=== PATIENT | male | born 1955 | race Caucasian/White ===

== ENCOUNTER 2019-11-11 05:09 | Emergency (ER) | payer OTHER, MEDICAID, SELFPAY ==
[2019-11-11 04:55] VITALS: BP 172/80; PULSE 75; RESP 24; TEMP 36.7; O2SAT 98; BMI 44.6
--- NOTE | 2019-11-11 05:45 | ED_ITS ---
HPI - General Adult General Chief complaint: Dizziness Stated complaint: Light headed Time Seen by Provider: 11/11/19 05:09 Source: EMS Mode of arrival: EMS Limitations: no limitations History of Present Illness HPI narrative: Patient is a 64-year-old male brought in by EMS for evaluation of symptoms that the patient stated occurred at approximately 0200 hours in the morning. He states that he was up late last evening watching movies. He states that just prior to going to bed he had a gradual onset of feeling like he was ?dizzy? plan further evaluation this did not sound like a vertigo issue but more of an unsteadiness issue. He had no other associated symptoms. He did go to sleep without any problems. Woke up several hours later to use the restroom when again he states he was feeling very unsteady on his feet. He went to his kitchen and took his blood pressure which he states was ?severely elevated ?he does not remember the exact numbers. EMS report that he told them the systolic blood pressures greater than 200. He subsequently took his blood pressure several more times after that. He states that he continued to feel very unsteady. He called EMS. When EMS arrived and placed on the monitor they did show a atrial flutter with a rate less than 100. As the patient was transitioned to the gurney and into the back of the ambulance EMS reports that he converted to sinus rhythm. Upon arrival patient states that he is feeling somewhat better. Related Data Allergies Allergy/AdvReac Type Severity Reaction Status Date / Time No Known Drug Allergies Allergy Verified 11/11/19 05:25 Review of Systems Constitutional Constitutional: Denies fatigue, Denies fever(s) and Denies headache(s) Eyes Eyes: Denies change in vision ENT Ears, Nose, Mouth, and Throat: Denies vertigo, Reports dizziness, Denies headache(s) and Reports disequilibrium Cardiovascular Cardiovascular: Denies chest pain, Denies rapid heart rate and Denies dyspnea Respiratory Respiratory: Denies dyspnea Gastrointestinal Gastrointestinal: Denies abdominal pain, Denies nausea and Denies vomiting Genitourinary Genitourinary: Denies dysuria Genitourinary: Denies dysuria Musculoskeletal Musculoskeletal: Denies arthralgias and Denies myalgias Integumentary/Breasts Skin/Breast: Denies lesions and Denies rash Neurologic Neurologic: Denies confusion, Denies vertigo, Reports dizziness, Denies headache(s), Reports tremor(s) and Reports disequilibrium Psychiatric Psychiatric: Denies confusion Endocrine Endocrine: Denies fatigue Hematologic/Lymphatic Hematologic/Lymphatic: Denies easy bleeding and Denies easy bruising Allergic/Immunologic Allergic/Immunologic: Denies urticaria Patient History Medical History Congestive heart failure (Acute) COPD (chronic obstructive pulmonary disease) (Acute) Hearing difficulty (Acute) Hypertension (Acute) Social History Smoking Status: Never smoker Smoking Status: Never smoker alcohol intake frequency: holidays/special occasions only Substance Use Type: does not use Exam Initial Vital Signs Initial Vital Signs: Vital Signs Temperature 98.0 F 11/11/19 04:55 Pulse Rate 75 11/11/19 04:55 Respiratory Rate 24 11/11/19 04:55 Blood Pressure 172/80 H 11/11/19 04:55 Pulse Oximetry 98 11/11/19 04:55 Const General: cooperative, comfortable, well developed and well groomed Limitations: mental status not altered HENIA Head: normal to inspection and normocephalic Eyes General: appearance normal, both eyes and all related structures Resp Effort & Inspection: normal respiratory effort Auscultation: clear to auscultation bilaterally Cardio Rate: regular rate Rhythm: regular rhythm Pulses: radial pulses present GI Inspection: non-distended Palpation: soft and No tender Skin Lesions: no lesions Rashes: no rashes Neuro General: patient alert, patient awake and patient oriented x3 Cognition: normal cognition Speech: speech normal Gait: normal gait Motor: muscle tone normal throughout Sensory Exam: no sensory deficits noted Extrem General: normal to inspection, capillary refill normal and edema Psych Appearance: grossly normal and well kempt Scores GCS Mariah coma scale eye opening: Spontaneous Mariah coma scale verbal response: Orientated Mariah coma scale motor response: Obey commands Mariah coma scale total score: 15 Course Orders Ordered: ED Orders 11/11/19 05:10 EKG-12 Lead Stat 11/11/19 05:55 Complete Blood Count AUTO DIFF Stat Comprehensive Metabolic Panel Stat Lipase Stat NT-proBNP (BNP-Adult 18+) Stat Partial Thromboplastin Time Stat Prothrombin Time INR Stat Vital Signs Vital signs: Vital Signs - 8 hr 11/11/19 04:55 11/11/19 06:21 08/29/20 06:35 Temperature 98.0 F Pulse Rate 75 62 64 Respiratory Rate 24 16 17 Blood Pressure 172/80 H 157/68 H 144/65 H Pulse Oximetry 98 98 99 Medical Decision Making Lab Data Lab results reviewed: Yes I reviewed the patient's lab results. Result diagrams: 11/11/19 05:55 11/11/19 05:55 Labs: Lab Results 11/11/19 11/11/19 11/11/19 Range/Units 05:55 05:55 05:55 WBC 7.4 (4.5-11.0) X10^3/uL RBC 4.91 (4.5-5.9) X10^6/uL Hgb 15.4 (13.5-17.5) g/dL Hct 45.2 (41-53) % MCV 92.1 (80-100) fL MCH 31.3 (26-34) PG MCHC 34.0 (30-36) % RDW 13.1 (11.6-14.8) % Plt Count 216 (150-400) X10^3/uL Neut % (Auto) Not Reportable Lymph % (Auto) Not Reportable [place] % (Auto) Not Reportable Eos % (Auto) Not Reportable Baso % (Auto) Not Reportable Lymph # (Auto) Not Reportable [place] # (Auto) Not Reportable Baso # (Auto) Not Reportable PT 11.6 (10.1-12.7) SECONDS INR 1.0 (0.9-1.3) APTT 31 (26.4-36.2) SECONDS Sodium 136 L (137-145) mmol/L Potassium 4.3 (3.4-5.1) mmol/L Chloride 102 (98-107) mmol/L Carbon Dioxide 27 (22-32) mmol/L BUN 14 (9-20) mg/dL Creatinine 0.71 (0.66-1.25) mg/dL Estimated GFR > 60.0 (>60) mL/min BUN/Creatinine Ratio 19.7 (6-22) Glucose 124 H (80-110) mg/dL Calcium 9.2 (8.4-10.2) mg/dL Total Bilirubin 0.6 (0.2-1.3) mg/dL AST 35 (17-59) IU/L ALT 57 H (<50) IU/L Alkaline Phosphatase 67 (38-126) U/L NT-Pro-B Natriuret Pep (<125) pg/mL Total Protein 7.5 (6.3-8.2) g/dL Albumin 4.3 (3.5-5.0) g/dL Globulin 3.2 (1.7-4.1) g/dL Albumin/Globulin Ratio 1.3 (1.0-2.8) Lipase 49 (23-300) U/L 11/11/19 Range/Units 05:55 WBC (4.5-11.0) X10^3/uL RBC (4.5-5.9) X10^6/uL Hgb (13.5-17.5) g/dL Hct (41-53) % MCV (80-100) fL MCH (26-34) PG MCHC (30-36) % RDW (11.6-14.8) % Plt Count (150-400) X10^3/uL Neut % (Auto) Lymph % (Auto) [place] % (Auto) Eos % (Auto) Baso % (Auto) Lymph # (Auto) [place] # (Auto) Baso # (Auto) PT (10.1-12.7) SECONDS INR (0.9-1.3) APTT (26.4-36.2) SECONDS Sodium (137-145) mmol/L Potassium (3.4-5.1) mmol/L Chloride (98-107) mmol/L Carbon Dioxide (22-32) mmol/L BUN (9-20) mg/dL Creatinine (0.66-1.25) mg/dL Estimated GFR (>60) mL/min BUN/Creatinine Ratio (6-22) Glucose (80-110) mg/dL Calcium (8.4-10.2) mg/dL Total Bilirubin (0.2-1.3) mg/dL AST (17-59) IU/L ALT (<50) IU/L Alkaline Phosphatase (38-126) U/L NT-Pro-B Natriuret Pep 24 (<125) pg/mL Total Protein (6.3-8.2) g/dL Albumin (3.5-5.0) g/dL Globulin (1.7-4.1) g/dL Albumin/Globulin Ratio (1.0-2.8) Lipase (23-300) U/L ECG Data Attestation: I personally reviewed and interpreted this ECG as follows: Prior ECG tracings: not available for review Interpretation: Sinus rhythm Ventricular rate is 77 Normal axis Normal QRS Normal QTC No ST T wave changes MDM Narrative Medical decision making narrative: Patient does report improvement of his symptoms after arrival here to the ER. Was able to evaluate the rhythm strips from the EMS and does appear that he was in atrial flutter on their initial strep. There was a subsequent strip which clearly shows sinus rhythm. Patient was hypertensive with a systolic blood pressure in the 170s upon arrival. This improved to a systolic blood pressure in the 140s with rest. Patient's EKG is unremarkable. Labs are unremarkable. Low suspicion for CVA. Low suspicion for ACS. She the dizziness the patient describes more of an unsteadiness and not a vertigo. Discussed all this with the patient. Feel patient could be safely discharged home without further testing here in the ER. No indication for admission to the hospital. Did inform him he should talk with his primary doctor about an indication to have a Holter monitor. He will continue his medications as directed. He was given return precautions and follow-up instructions. He expressed understanding and agreement. Discharge Plan Departure Patient Disposition: Home Clinical Impression: Dizziness Hypertension Qualifiers: Hypertension type: unspecified Qualified Code(s): I10 - Essential (primary) hypertension Atrial flutter Qualifiers: Atrial flutter type: unspecified Qualified Code(s): I48.92 - Unspecified atrial flutter Instructions: DI for Atrial Flutter, DI for Dizziness-Nonvertigo Activity Restrictions/Additional Instructions: Continue all of your medications as directed. Recommend that at the beginning of next week you contact your primary doctor to schedule follow-up appointment to discuss the indications for a Holter monitor. The Holter monitor is a device that you wear for specific period of time that measures your heart rate and rhythm. Return to the emergency department for any new or worsening symptoms
[2019-11-11 06:12] LABS: Prothrombin Time 11.6 SECONDS (10.1-12.7)
[2019-11-11 06:14] LABS: PTT Partial Thromboplastin Tim 31 SECONDS (26.4-36.2)
[2019-11-11 06:16] LABS: Alanine Aminotransferase 57 IU/L (<50); Albumin 4.3 g/dL (3.5-5.0); Albumin Globulin Ratio 1.3 (1.0-2.8); Alkaline Phosphatase 67 U/L (38-126); Aspartate Aminotransferase 35 IU/L (17-59); BUN Creatinine Ratio 19.7 (6-22); Bilirubin Total 0.6 mg/dL (0.2-1.3); Blood Urea Nitrogen 14 mg/dL (9-20); Calcium 9.2 mg/dL (8.4-10.2); Carbon Dioxide 27 mmol/L (22-32); Chloride 102 mmol/L (98-107); Estimated Glomerular Filt Rate > 60.0 mL/min (>60); Globulin 3.2 g/dL (1.7-4.1); Glucose 124 mg/dL (80-110); HEMOLYSIS 17 (0-50); Hematocrit 45.2 % (41-53); Hemoglobin 15.4 g/dL (13.5-17.5); Lipase 49 U/L (23-300); Mean Corpuscular Hemoglobin 31.3 PG (26-34); Mean Corpuscular Volume 92.1 fL (80-100); Platelet Count 216 X10^3/uL (150-400); Potassium 4.3 mmol/L (3.4-5.1); Red Blood Cell Count 4.91 X10^6/uL (4.5-5.9); Red Cell Distribution Width 13.1 % (11.6-14.8); Sodium 136 mmol/L (137-145); Total Protein 7.5 g/dL (6.3-8.2); White Blood Cell Count 7.4 X10^3/uL (4.5-11.0)
[2019-11-11 06:17] LABS: Add Manual Diff / Slide Review YES
[2019-11-11 06:21] VITALS: BP 157/68; PULSE 62; RESP 16; O2SAT 98
[2019-11-11 06:25] LABS: NT-proBNP (BNP-Adult 18+) 24 pg/mL (<125)
[2019-11-11 06:35] VITALS: BP 144/65; PULSE 64; RESP 17; O2SAT 99
[2019-11-11 07:12] LABS: Neutrophils Absolute Manual 3626 /uL (3000-5900); Total Cells Counted 100
[2019-11-11 07:13] LABS: RBC Morphology See
== END 2019-11-11 06:46 | disposition home or self-care (01) ==
PROVIDERS: Emergency Provider Emergency Medicine
DX: I48.92 Unspecified atrial flutter (principal); I10 Essential (primary) hypertension; R42 Dizziness and giddiness
CPT/HCPCS: 36415; 80053; 83690; 83880; 85025; 85610; 85730; 93005; 99283; 99284